=== PATIENT | female | born 1995 | race Caucasian/White ===

== ENCOUNTER → 2021-11-19 | Outpatient (CLI) | payer OTHER | LOC: M LABSMTC 13:40 | PROVIDERS: ATTEND Pediatrics | DX: Z20.822 Contact with and (suspected) exposure to COVID-19 (principal) | CPT/HCPCS: C9803; U0003 ==

== ENCOUNTER → 2022-02-01 | Outpatient (CLI) | payer OTHER ==
[2022-02-01 09:43] LABS: ESTRADIOL 363.4 PG/ML; PROGESTERONE 47.67 NG/ML
== END ==
LOC: M LAB 07:52
PROVIDERS: ATTEND Obstetrics & Gynecology Reproductive Endocrinology
DX: Z31.49 Encounter for other procreative investigation and testing (principal)

== ENCOUNTER → 2022-02-05 | Outpatient (CLI) | payer OTHER ==
[2022-02-05 09:12] LABS: PROGESTERONE 39.75 NG/ML
== END ==
LOC: M LAB 06:28
PROVIDERS: ATTEND Obstetrics & Gynecology Reproductive Endocrinology
DX: Z32.00 Encounter for pregnancy test, result unknown (principal)

== ENCOUNTER → 2022-02-08 | Outpatient (CLI) | payer OTHER ==
[2022-02-08 07:17] LABS: THYROID STIMULATING HORMONE 1.34 uIU/ML (0.358-3.740)
[2022-02-08 08:46] LABS: ESTRADIOL 1796.5 PG/ML; PROGESTERONE 35.42 NG/ML
== END ==
LOC: M LAB 06:16
PROVIDERS: ATTEND Obstetrics & Gynecology Reproductive Endocrinology
DX: Z32.01 Encounter for pregnancy test, result positive (principal)

== ENCOUNTER → 2022-02-15 | Outpatient (CLI) | payer OTHER ==
[~2022-02-15] MED LIST: ACET-683 PO; MULTTAB20 PO; ONDA4TAB6 PO; PROG50IN5 IM
[2022-02-15 08:17] LABS: PROGESTERONE 46.77 NG/ML
[2022-02-15 08:18] LABS: ESTRADIOL 2272.4 PG/ML
== END ==
LOC: M LAB 06:18
PROVIDERS: ATTEND Obstetrics & Gynecology Reproductive Endocrinology
DX: Z32.01 Encounter for pregnancy test, result positive (principal)

== ENCOUNTER → 2022-02-15 | Outpatient (CLI) | payer OTHER | LOC: M WHC 08:02 | PROVIDERS: ATTEND Obstetrics & Gynecology Reproductive Endocrinology | DX: Z32.01 Encounter for pregnancy test, result positive (principal) ==

== ENCOUNTER 2022-02-20 11:34 | Emergency (ER) | payer OTHER ==
[~2022-02-20] VITALS: Ht 177.8 cm; Wt 79.5 kg
[2022-02-20] MEDS ORDERED: PROG50IN5 IM (11:40)
[2022-02-20] MEDS ORDERED: MULTTAB20 PO (11:40)
[2022-02-20] MEDS ORDERED: ACET-683 PO (11:46)
[2022-02-20] MEDS ORDERED: LORATADINE 10 MG TAB PO ONE (12:30)
[2022-02-20] MEDS ORDERED: ONDANSETRON 4MG ORAL DISINTEGRATING TAB PO ONE (12:30)
[2022-02-20] MEDS ORDERED: ONDA4TAB6 PO (13:21)
[2022-02-20 13:29] VITALS: BP 114/61
== END 2022-02-20 13:30 | disposition home or self-care (01) ==
LOC: M ED 11:34
DX: R11.0 Nausea (principal); B34.8 Other viral infections of unspecified site; R51.9 Headache, unspecified

== ENCOUNTER → 2022-02-22 | Outpatient (CLI) | payer OTHER | LOC: M WHC 07:16 | PROVIDERS: ATTEND Obstetrics & Gynecology Reproductive Endocrinology | DX: O09.01 Supervision of pregnancy with history of infertility, first trimester (principal); O30.001 Twin pregnancy, unspecified number of placenta and unspecified number of amniotic sacs, first trimester; Z3A.01 Less than 8 weeks gestation of pregnancy ==

== ENCOUNTER → 2022-02-22 | Outpatient (CLI) | payer OTHER ==
[2022-02-22 11:33] LABS: PROGESTERONE 77.43 NG/ML
[2022-02-22 11:43] LABS: ESTRADIOL 3518.7 PG/ML
== END ==
LOC: M PLALAB 08:34
PROVIDERS: ATTEND Obstetrics & Gynecology Reproductive Endocrinology
DX: O09.00 Supervision of pregnancy with history of infertility, unspecified trimester (principal)

== ENCOUNTER → 2022-05-14 | Outpatient (CLI) | payer OTHER | LOC: M WHC 09:47 | PROVIDERS: ATTEND Obstetrics & Gynecology | DX: O30.032 Twin pregnancy, monochorionic/diamniotic, second trimester (principal); Z3A.18 18 weeks gestation of pregnancy; O32.2XX1 Maternal care for transverse and oblique lie, fetus 1; O32.2XX2 Maternal care for transverse and oblique lie, fetus 2 ==

== ENCOUNTER → 2022-05-27 | Outpatient (CLI) | payer OTHER | LOC: M WHC 07:03 | PROVIDERS: ATTEND Obstetrics & Gynecology | DX: O30.012 Twin pregnancy, monochorionic/monoamniotic, second trimester (principal); Z3A.20 20 weeks gestation of pregnancy; O36.5922 Maternal care for other known or suspected poor fetal growth, second trimester, fetus 2 ==

== ENCOUNTER → 2022-06-29 | Outpatient (CLI) | payer OTHER | LOC: M WHC 08:33 | PROVIDERS: ATTEND Obstetrics & Gynecology | DX: O30.012 Twin pregnancy, monochorionic/monoamniotic, second trimester (principal); Z3A.24 24 weeks gestation of pregnancy; O32.1XX2 Maternal care for breech presentation, fetus 2 ==

== ENCOUNTER 2022-09-08 05:11 | Emergency (ER) | payer OTHER ==
[~2022-09-08] VITALS: Ht 177.8 cm; Wt 104.4 kg
[2022-09-08 06:09] LABS: BASO % 0.4 % (0.0-1.0); EOS # 0.3 10^3/uL (0.0-0.5); EOS % 3.5 % (0.0-3.0); HEMATOCRIT 32.4 % (36.0-47.0); HEMOGLOBIN 10.1 g/dl (12.0-15.5); LYMPH # 2.4 10^3/uL (1.5-5.0); LYMPH % 24.4 % (24.0-44.0); MEAN CORPUSCULAR HGB CONC 31.2 g/dl (32.0-36.5); MEAN CORPUSCULAR VOLUME 93.1 fl (80.0-96.0); MONO # 0.6 10^3/uL (0.0-0.8); MONO % 6.1 % (2.0-8.0); NEUTROPHILS # 6.4 10^3/uL (1.5-8.5); PLATELET COUNT, AUTOMATED 424 10^3/uL (150-450); RED BLOOD COUNT 3.48 10^6/uL (4.00-5.40); WHITE BLOOD COUNT 9.8 10^3/uL (4.0-10.0)
[2022-09-08 06:19] LABS: INR 1.04; PROTHROMBIN TIME 13.8 SECONDS (12.5-14.5)
[2022-09-08 06:22] LABS: D-DIMER QUANT 2026.03 ng/ml (<500)
[2022-09-08 06:42] LABS: CK-MB VALUE MASS < 1.0 NG/ML (<3.6); CPK CREATINE PHOSPHOKINASE 59 U/L (26-192); MB/CK RELATIVE INDEX 1.69 (< OR =4)
[2022-09-08 06:49] LABS: ALBUMIN 2.9 GM/DL (3.2-5.2); ALT/SGPT 33 U/L (12-78); BILIRUBIN,TOTAL 0.4 MG/DL (0.2-1.0); BLOOD UREA NITROGEN 11 MG/DL (7-18); CARBON DIOXIDE LEVEL 23 MEQ/L (21-32); CHLORIDE LEVEL 107 MEQ/L (98-107); CREATININE FOR GFR 0.73 MG/DL (0.55-1.30); GLOMERULAR FILTRATION RATE > 60.0 (>60); GLUCOSE, FASTING 104 MG/DL (70-100); NT-PRO BNP 13 PG/ML (<125); POTASSIUM SERUM 5.6 MEQ/L (3.5-5.1); SODIUM LEVEL 137 MEQ/L (136-145); TOTAL PROTEIN 6.6 GM/DL (6.4-8.2)
[2022-09-08 06:50] LABS: BILIRUBIN,DIRECT < 0.1 MG/DL (0.0-0.2)
[2022-09-08] MEDS ORDERED: ISOVUE-370 76% 100ML VIAL As Ordered ONE (07:06)
[2022-09-08 08:43] LABS: LIPASE 87 U/L (73-393)
[2022-09-08 08:50] LABS: CK-MB VALUE MASS < 1.0 NG/ML (<3.6); CPK CREATINE PHOSPHOKINASE 38 U/L (26-192); MB/CK RELATIVE INDEX 2.63 (< OR =4)
[2022-09-08] MEDS ORDERED: HYDR-4571 PO (09:14)
[2022-09-08 09:25] VITALS: BP 118/64
== END 2022-09-08 09:50 | disposition home or self-care (01) ==
LOC: M ED 05:11
DX: K80.20 Calculus of gallbladder without cholecystitis without obstruction (principal); I51.7 Cardiomegaly; N85.2 Hypertrophy of uterus; Z79.899 Other long term (current) drug therapy
CPT/HCPCS: 36415; 71045; 71275; 74177; 80048; 80076; 82550; 82553; 83605; 83690; 83880; 84443; 84484; 85025; 85379; 85610; 87040; 87486; 87581; 87633; 87798; 93005; 93041; 94760; 99284; Q9967